=== PATIENT | female | born 1965 | race Caucasian/White ===

== ENCOUNTER 2019-07-25 23:16 | Inpatient (IN) | payer MEDICAID ==
[~2019-07-25] VITALS: Ht 175.3 cm; Wt 243.1 kg
--- NOTE | 2019-07-26 02:10 | NUR ---
Admitted direct admit from [facility] via ambulance. noted left black eye, states she did that to herself bumping her glasses. bruises on her upper chest and jhony arms right and left. large bag of medications , states some doctor ordered them and she is refusing to take them until she speaks in person to a MD. Medication will be taken to the Pharm in the [facility] of[facility] safe keeping. She stated she takes a BP medication but does not know its name/. She is obeses and bedbound
[2019-07-26 03:00] VITALS: BP 128/74
[2019-07-26] MEDS ORDERED: ONDANSETRON HCL/PF 4 MG/2 ML VIAL IVP PRN (03:00)
[2019-07-26] MEDS ORDERED: Z GUARD REMEDY 2 OZ OINT TP PRN (03:00)
[2019-07-26] MEDS ORDERED: MAG HYDROX/AL HYDROX/SIMETH 30 ML UDC PO PRN ×2 (03:00→17:00)
[2019-07-26] MEDS ORDERED: HYDROCODONE/APAP 5/325MG 1 EACH TABLET PO PRN (03:00)
[2019-07-26] MEDS ORDERED: MAGNESIUM HYDROXIDE 30 ML UDC PO PRN (03:00)
[2019-07-26] MEDS ORDERED: ZOLPIDEM TARTRATE 5 MG TABLET PO PRN (03:00)
[2019-07-26 03:13] LABS: EOSINOPHILS % (AUTO) 0.6 % (0.0-6.0); HEMATOCRIT 33 % (33-45); HEMOGLOBIN 10.6 g/dL (11.5-14.8); LYMPHOCYTES # (AUTO) 0.2 /CMM (0.8-4.8); LYMPHOCYTES % (AUTO) 11.7 % (20.0-44.0); MEAN CORPUSCULAR HGB CONC 32 g/dl (31.0-36.0); MEAN CORPUSCULAR VOLUME 87 fL (82-100); MONOCYTES # (AUTO) 0.1 /CMM (0.1-1.30); MONOCYTES % (AUTO) 9.2 % (2.0-12.0); NEUTROPHILS # (AUTO) 1.1 /CMM (1.8-8.9); NEUTROPHILS % (AUTO) 75.5 % (43.0-81.0); RED BLOOD CELL COUNT(AUTO) 3.78 MIL/uL (4.0-5.2)
[2019-07-26 03:22] LABS: CALCIUM, SERUM 8.8 mg/dL (8.5-10.1); CREATININE 0.6 mg/dL (0.6-1.3); POTASSIUM 3.4 mmol/L (3.5-5.1)
[2019-07-26 03:24] VITALS: BP 128/74
[2019-07-26 04:22] LABS: WHITE BLOOD COUNT (AUTO) 1.5 K/uL (4.3-11.0)
[2019-07-26 04:23] LABS: PLATELET COUNT (AUTO) 6 /CMM (150-450)
[2019-07-26] MEDS: MORPHINE SULFATE INJ 2 MG/ML DISP.SYRIN IV PRN ×4 (05:19→21:55)
[2019-07-26 05:57] LABS: LYMPHOCYTES % (MANUAL) 13 % (16-48); MONOCYTES % (MANUAL) 10 % (0-11.0); NEUTROPHILS % (MANUAL) 77 (42-76)
--- NOTE | 2019-07-26 07:30 | NUR ---
RN MS NOTES PT IN BED, AWAKE, ALERT AND ORIENTED, STILL WITH COMPLAINT OF ABDOMINAL PAIN, RESPIRATIONS NORMAL AND NOT LABORED, CALL LIGHT WITHIN REACH, NEEDS ATTENDED.
--- NOTE | 2019-07-26 07:58 | NUR ---
LINKING MACHINE OPERATOR/MED RECON PATIENT OAX3, ABLE TO MAKE NEEDS KNOW. REPORTED NOT TAKING ANY MEDICATION. ADMITTED FROM [facility] WITH HOME MEDICATION SUPPLY, PER PATIENT "I DON'T TAKE ANY MEDICATION, I WAS PRESCRIBED WITH THEM BUT I DON'T KNOW WHY? I NEVER SAW THE DOCTOR THAT PRESCRIBED THEM". PRIMARY RN AWARE.
[2019-07-26 08:00] VITALS: BP 134/71
--- NOTE | 2019-07-26 09:01 | NUR ---
RN MS NOTES PT STATED THAT SHE IS ALLERGIC TO CODEINE BUT SAID SHE IS OKAY TAKING MORPHINE, NO ADVERSE REACTION NOTED.
[2019-07-26] MEDS: PANTOPRAZOLE 40 MG TABLET.DR PO SCH (09:18)
[2019-07-26] MEDS ORDERED: POTASSIUM CHLORIDE 20 MEQ TAB.PRT.SR PO SCH (10:00)
--- NOTE | 2019-07-26 13:45 | NUR ---
RN MS NOTES PT IN BED, AWAKE, ALERT AND ORIENTED, NOT IN DISTRESS, PAIN MEDS GIVEN FOR ABDOMINAL PAIN, SEEN AND EXAMINED BY DR. KAUR, PLAN OF CARE DISCUSSED WITH PT, VERBALIZED UNDERSTANDING.
[2019-07-26] MEDS ORDERED: BACL10TA PO (14:56)
[2019-07-26] MEDS ORDERED: PROP40TA7 PO (14:56)
[2019-07-26] MEDS ORDERED: FENT1PAT2 TD (14:56)
[2019-07-26] MEDS ORDERED: HYDR28.32 TP (14:56)
[2019-07-26] MEDS ORDERED: MINE105O TP (14:56)
[2019-07-26] MEDS ORDERED: MELA5TAB PO (14:56)
[2019-07-26] MEDS ORDERED: MAG355OR32 PO (14:56)
[2019-07-26] MEDS ORDERED: TOPI100T38 PO (14:56)
[2019-07-26] MEDS ORDERED: LOPE2CAP40 PO (14:56)
[2019-07-26] MEDS ORDERED: FEXO180T94 PO (14:56)
[2019-07-26] MEDS ORDERED: SIME80TA15 PO (14:56)
[2019-07-26] MEDS ORDERED: HYDR-500 PO (14:56)
[2019-07-26] MEDS ORDERED: BENA20TA9 PO (14:56)
[2019-07-26] MEDS ORDERED: ALBU2.5V38 IH (14:56)
[2019-07-26] MEDS ORDERED: CHOL500052 PO (14:56)
[2019-07-26] MEDS ORDERED: LOPERAMIDE HCL (2 MG CAP) 2 MG CAPSULE PO PRN (17:00)
[2019-07-26] MEDS ORDERED: HYDROCORTISONE 1% CREAM 28.35 GM TUBE TP PRN (17:00)
[2019-07-26] MEDS ORDERED: ALBUTEROL FS 2.5 MG/3 ML VIAL.NEB IH PRN (17:00)
[2019-07-26] MEDS ORDERED: SIMETHICONE 80 MG TAB.CHEW PO PRN (17:00)
[2019-07-26] MEDS ORDERED: Medication Not On Formulary EA (Melatonin 5 MG) PO PRN (17:30)
[2019-07-26] MEDS ORDERED: hydrOXYzine 10 MG TABLET PO PRN (17:30)
[2019-07-26] MEDS: TOPIRAMATE 100 MG TABLET PO SCH (18:00)
[2019-07-26] MEDS: FENTANYL TD PATCH (12 MCG/HR) 12 MCG/HR PATCH.TD72 TD SCH (18:00)
--- NOTE | 2019-07-26 19:00 | NUR ---
RN MS NOTES PT IN BED, AWAKE, ALERT AND ORIENTED, NO COMPLAINT AT THIS TIME, RESPIRATIONS NORMAL, PT HARD STICK, DR. KAUR ORDERED MIDLINE, AWAITING PLACEMENT, ATE DINNER, TOLERATES WELL, PT FOR PLATELET TRANSFUSION, ALL NEEDS ATTENDED.
[2019-07-26 19:32] VITALS: BP 128/90
--- NOTE | 2019-07-26 19:56 | NUR ---
MS/RN OPENING NOTES RECEIVED PATIENT IN BED, AWAKE, ALERT X3 ABLE TO VERBALIZE NEEDS. DISCUSSED CARE. INFORMED REGARDING MIDLINE PROCEDURE AND TO ADMINISTER PLATELET ONCE CROSS MATCH WILL BE PROVIDED. BED LOCKED, CALL LIGHTS WITHIN REACH, BED TABLE WITHIN REACH. ON ROOM AIRE RESPIRATIONS EVEN AND UNLABORED, WILL MONITOR. RECEIVED ENDORSEMENT FROM AM RN FOR JEFFREY.
[2019-07-26 20:00] VITALS: BP 129/80
--- NOTE | 2019-07-26 20:50 | NUR ---
AWAITING FOR PICC LINE NURSE AND PATIENT WOULD LIKE TO HAVE ANOTHER BED THAT IS MORE COMFORTABLE, THAT WAS REFUSED YESTERDAY, A BARIATRIC BED TO FOLLOW UP IN AM.
--- NOTE | 2019-07-26 21:00 | NUR ---
PER DR. RAYMOND TO COLLECT URINE AND MAY USE STRAIGHT CATHETER .
[2019-07-26] MEDS: PROPRANOLOL HCL 40 MG TABLET PO SCH (21:54)
[2019-07-26] MEDS: FOLIC ACID 1 MG TABLET PO SCH (21:54)
--- NOTE | 2019-07-26 22:00 | NUR ---
PATIENT HAD COVID TEST AT [facility] WITH NEGATIVE RESULT RECENTLY. PATIENT REFUSED TO HAVE ANOTHER TEST AT THIS TIME,
[2019-07-26 22:37] LABS: ALBUMIN 3.3 g/dL (3.4-5.0); BILIRUBIN,DIRECT 0.3 mg/dL (0.0-0.2); BILIRUBIN,TOTAL 0.9 mg/dL (0.2-1.0); TOTAL PROTEIN, SERUM 5.7 g/dL (6.4-8.2)
[2019-07-27] VITALS (10 sets, daily range): BP systolic 105–149; BP diastolic 63–89
[2019-07-27 00:41] LABS: D-DIMER 4.32 mg/L(FEU (0.17-0.50)
--- NOTE | 2019-07-27 02:05 | NUR ---
LATEST RESULT OF PLATELET COUNT AT 7., PER LAB BRENDAN ANTIBODY POSITIVE FROM [place] .
[2019-07-27] MEDS: MORPHINE SULFATE INJ 2 MG/ML DISP.SYRIN IV PRN ×4 (04:11→22:23)
[2019-07-27] MEDS: PROPRANOLOL HCL 40 MG TABLET PO SCH ×3 (05:00→20:50)
--- NOTE | 2019-07-27 07:00 | NUR ---
307-2 MS/RN NOTES PATIENT ABLE TO SLEEP FEW HOURS, ALERT, ORIENTED AND ABLE TO MAKE NEEDS KNOWN. ATTENDED TO ALL NEEDS, BLOOD DRAWN AND PLATELET ORDER RECEIVED FOR TRANSFUSION , MIDLINE PLACED AND KEPT INTACT. BED LOCKED, BREATHING EVEN AND UNLABORED, WILL ENDORSE TO AM RN FOR JEFFREY.
--- NOTE | 2019-07-27 07:07 | NUR ---
started to infuse one unit of platelet. check patient vital signs and cosigned by another RN Barbara.will endorse to am rn for uche.
--- NOTE | 2019-07-27 07:30 | NUR ---
RN MS NOTES PT IN BED, ASLEEP, EASY TO AROUSE, ALERT AND ORIENTED, NO COMPLAINT AT THIS TIME, RESPIRATIONS NORMAL, CALL LIGHT WITHIN REACH, TRANSFUSING PLATELETS, TOLERATING WELL, NEEDS ATTENDED.
[2019-07-27] MEDS ORDERED: ERGOCALCIFEROL (VITAMIN D 2) 50,000 UNIT CAPSULE PO SCH (09:00)
[2019-07-27] MEDS: FEXOFENADINE HCL (60 MG) 60 MG TABLET PO SCH (09:00)
[2019-07-27] MEDS: FOLIC ACID 1 MG TABLET PO SCH (09:00)
[2019-07-27] MEDS: BENAZEPRIL HCL 20 MG TABLET PO SCH (09:00)
[2019-07-27] MEDS: PANTOPRAZOLE 40 MG TABLET.DR PO SCH (09:51)
[2019-07-27 10:51] LABS: BASOPHILS % (AUTO) 0.3 % (0.0-2.0); EOSINOPHILS % (AUTO) 0.5 % (0.0-6.0); HEMATOCRIT 31 % (33-45); HEMOGLOBIN 10.1 g/dL (11.5-14.8); LYMPHOCYTES # (AUTO) 0.2 /CMM (0.8-4.8); LYMPHOCYTES % (AUTO) 14.6 % (20.0-44.0); MEAN CORPUSCULAR HGB CONC 32 g/dl (31.0-36.0); MEAN CORPUSCULAR VOLUME 86 fL (82-100); MONOCYTES # (AUTO) 0.1 /CMM (0.1-1.30); MONOCYTES % (AUTO) 7.7 % (2.0-12.0); NEUTROPHILS # (AUTO) 0.9 /CMM (1.8-8.9); NEUTROPHILS % (AUTO) 76.9 % (43.0-81.0); RED BLOOD CELL COUNT(AUTO) 3.62 MIL/uL (4.0-5.2)
[2019-07-27 11:10] LABS: CALCIUM, SERUM 8.7 mg/dL (8.5-10.1); CREATININE 0.6 mg/dL (0.6-1.3); PHOSPHORUS 3.6 mg/dL (2.5-4.9); POTASSIUM 3.6 mmol/L (3.5-5.1)
[2019-07-27 11:16] LABS: PLATELET COUNT (AUTO) 7 /CMM (150-450); WHITE BLOOD COUNT (AUTO) 1.2 K/uL (4.3-11.0)
[2019-07-27 12:30] LABS: THYROID STIMULATING HORMONE 1.199 uIU/mL (0.358-3.74)
--- NOTE | 2019-07-27 13:00 | NUR ---
RN MS NOTES PT IN BED, AWAKE, ALERT AND ORIENTED, PAIN MEDS GIVEN FOR PAIN MANAGEMENT, COMPLETED 2 UNITS OF PLATELETS, VITAL SIGNS WNL, TOLERATED WELL, CALL LIGHT WITHIN REACH.
[2019-07-27 14:25] LABS: LYMPHOCYTES % (MANUAL) 12 % (16-48); MONOCYTES % (MANUAL) 8 % (0-11.0); NEUTROPHILS % (MANUAL) 80 (42-76)
[2019-07-27] MEDS ORDERED: ACETAMINOPHEN 325 MG TABLET PO ONE (14:30)
[2019-07-27] MEDS ORDERED: diphenhydrAMINE HCL 50 MG/ML VIAL IV ONE (14:30)
[2019-07-27] MEDS ORDERED: CEFEPIME 1 GM VIAL IM SCH (15:00)
[2019-07-27] MEDS: AZTREONAM 2 G in IV NS 0.9% 100 ML IV SCH (17:43)
[2019-07-27] MEDS: TOPIRAMATE 100 MG TABLET PO SCH (17:47)
[2019-07-27] MEDS: ALLOPURINOL 100 MG TABLET PO SCH (17:47)
--- NOTE | 2019-07-27 19:00 | NUR ---
RN MS NOTES PT AWAKE, ALERT AND ORIENTED, PAIN MEDICATION GIVEN FOR PAIN MANAGEMENT, NOT IN DISTRESS, STARTED PT ON IV ATB PER ORDER OF DR. RAYMOND, PM CARE RENDERED, MOVED PT TO [facility] BED, TOLERATED WELL, REPOSITIONED FOR COMFORT, PT REFUSED URINE SPECIMEN COLLECTION UNTIL AFTER SHE WAS TRANSFERRED TO THE [facility] BED, ENDORSED CARE TO HORTICULTURAL FARMWORKER NURSE FOR CONTINUITY OF CARE.
--- NOTE | 2019-07-27 20:00 | NUR ---
MS/RN OPENING NOTES RECEIVED PATIENT IN BED, ALERT, ORIENTED X3, ABLE TO VERBALIZE NEEDS, ON BARIATRIC BED, RESPIRATIONS EVEN AND UNLABORED, ON CONTACT ISOLATION FOR MRSA NARES,NEUTRAPENIA PRECAUTION WITH LOW WBC. KEPT COMFORTABLE, PROVIDED SOME SNACKS, DISCUSSED PLAN OF CARE, WILL MONITOR. BED LOCKED, CALL LIGHTS WITHIN REACH. WILL ENDORSE TO AM RN FOR JEFFREY.
--- NOTE | 2019-07-27 20:47 | NUR ---
RESULT PER LAB REGAN GRAM POSITIVE COCCI IN CLUSTERS TO INFORM .
[2019-07-27] MEDS: MUPIROCIN OINT 2% 22 GM TUBE SCH (20:50)
--- NOTE | 2019-07-27 22:24 | NUR ---
PATIENT REQUESTED FOR PAIN MEDICATION FOR ABDOMINAL AND SHOULDER PAIN 10/12, MORPHINE 2 MG IVP REQUESTED BP WNL, ALERT, ORIENTED X3.
--- NOTE | 2019-07-27 23:11 | NUR ---
PREPARE PATIENT FOR PLATELET TRANSFUSION, ALERT, ORIENTED VITAL SIGNS RECORDED WNL. PATIENT PROVIDE INFORMATION ON PRE MEDICATION, AGREED FOR SOME TYLENOL ORDERED OF 650MG PO BUT REFUSED BENADRYL. DISCUSSED PROS AND CONS,VERBALIZED UNDERSTANDING. WILL MONITOR.
--- NOTE | 2019-07-27 23:42 | NUR ---
MS/RN NOTES PATIENT PLATELET BEING TRANSFUSED, AFTER BEING VERIFIED AND COSIGNED BY YESENIA DIOR,PATIENT ALERT, ORIENTED X3, ABLE TO VERBALIZE NEEDS, EDUCATED AND INSTRUCTED ON INFECTION CONTROL. WILL MONITOR.
[2019-07-28] VITALS (13 sets, daily range): BP systolic 123–143; BP diastolic 62–84
--- NOTE | 2019-07-28 | NUR ---
MS/RN NOTES PLATELET 1 UNIT TRANSFUSED WITH NO S/S OF REACTION. VITAL SIGNS CHECK WNL.TEMP AT 98.3. PULSE 82, O2 SAT IN ROOM AIR AT 95%, RES- PIRATION AT 19, B/P AT 124/64,
[2019-07-28] MEDS: AZTREONAM 2 G in IV NS 0.9% 100 ML IV SCH ×3 (00:20→16:46)
--- NOTE | 2019-07-28 03:11 | NUR ---
MS/RN NOTES PATIENT REFUSED TO HAVE ANOTHER PHOTO PICTURES TO BE TAKEN ON HER BRUISES, REPORTED THAT IT WAS PHOTOGRAPH ALREADY. MADE AWARE AND INSIST THAT SHE WANTED NO PICTURES BE TAKEN,
[2019-07-28] MEDS: MORPHINE SULFATE INJ 2 MG/ML DISP.SYRIN IV PRN ×4 (04:58→21:44)
[2019-07-28] MEDS: PROPRANOLOL HCL 40 MG TABLET PO SCH ×3 (05:00→21:45)
--- NOTE | 2019-07-28 05:03 | NUR ---
MS/RN NOTES PATIENT REQUESTED FOR PAIN MEDICATION IVP SLOW PICH OF 2MG DUE TO PAIN AND WITH BLOOD PRESSURE CHECK. REQUESTED NOT TO HAVE SCHEDULED MED AT 0500 FOR HTN BE GIVEN. AT THIS TIME AND WAIT FOR THE AM AT 9AM .
--- NOTE | 2019-07-28 06:18 | NUR ---
307-2 MS/RNNOTES PATIENT SLEPT FEW HOURS, WATCHED TV FOR DISTRACTION. ON PAIN MANAGEMENT MONITORING. IV ANTIBIOTIC INFUSED, PLATELET ONE UNIT TRANSFUSED WITH NO S/S OF ADVERSE REACTION, ON ROOM AIR WITH OXYGENATION LEVEL OF 95%. ATTENDED TO ALL NEEDS, WILL ENDORSE TO AM RN FOR JEFFREY.
[2019-07-28 06:42] LABS: D-DIMER 4.99 mg/L(FEU (0.17-0.50)
--- NOTE | 2019-07-28 06:45 | NUR ---
MS/RN NOTES RECEIVED LATEST PLATELET COUNT RESULT OF 9 REPORTED BY LAB RAMOS GONSALVES. TO FOLLOW UP INCOMING MD,AND ENDORSE TO AM RN FOR ANY NEW ORDER.
--- NOTE | 2019-07-28 06:53 | NUR ---
BLOOD BANK CONTACTED REGARDING PLASMA REQUEST AND TO BE PREPARED AND TO CALL ONCE READY. TO ENDORSE TO AM YESENIA .
[2019-07-28] MEDS: FOLIC ACID 1 MG TABLET PO SCH (08:16)
[2019-07-28] MEDS: ALLOPURINOL 100 MG TABLET PO SCH ×3 (08:16→16:32)
[2019-07-28] MEDS: FEXOFENADINE HCL (60 MG) 60 MG TABLET PO SCH (08:16)
[2019-07-28] MEDS: PANTOPRAZOLE 40 MG TABLET.DR PO SCH (08:16)
[2019-07-28] MEDS: BENAZEPRIL HCL 20 MG TABLET PO SCH (08:16)
[2019-07-28] MEDS: MUPIROCIN OINT 2% 22 GM TUBE SCH ×2 (08:29→21:00)
--- NOTE | 2019-07-28 10:17 | NUR ---
MS RN NOTES RECEIVED A CALL FROM LATOYA [place] [facility] [place] PER LATOYA SHE WILL ASK MD IF THEY WILL ACCEPT PATIENT AND WILL INFORM OUR CM.
[2019-07-28] MEDS ORDERED: ACETAMINOPHEN 325 MG TABLET PO ONE (13:00)
[2019-07-28] MEDS ORDERED: diphenhydrAMINE HCL 50 MG/ML VIAL IV ONE (13:00)
[2019-07-28 13:09] LABS: CALCIUM, SERUM 8.4 mg/dL (8.5-10.1); CREATININE 0.7 mg/dL (0.6-1.3); POTASSIUM 3.3 mmol/L (3.5-5.1); TOTAL PROTEIN, SERUM 5.4 g/dL (6.4-8.2)
[2019-07-28] MEDS ORDERED: FEE PK DOSING 1 MIN EA MC ONE (13:11)
[2019-07-28] MEDS: TBO-FILGRASTIM 480 MCG/0.8 ML ML SQ SCH (13:54)
[2019-07-28] MEDS: VANCOMYCIN 1.5 GM in IV D5W 500ml IV SCH (13:57)
[2019-07-28 14:43] LABS: BASOPHILS % (AUTO) 0.5 % (0.0-2.0); EOSINOPHILS % (AUTO) 0.9 % (0.0-6.0); HEMATOCRIT 29 % (33-45); HEMOGLOBIN 9.2 g/dL (11.5-14.8); LYMPHOCYTES # (AUTO) 0.1 /CMM (0.8-4.8); LYMPHOCYTES % (AUTO) 17.5 % (20.0-44.0); MEAN CORPUSCULAR HGB CONC 32 g/dl (31.0-36.0); MEAN CORPUSCULAR VOLUME 86 fL (82-100); MONOCYTES # (AUTO) 0.1 /CMM (0.1-1.30); MONOCYTES % (AUTO) 8.6 % (2.0-12.0); NEUTROPHILS # (AUTO) 0.5 /CMM (1.8-8.9); NEUTROPHILS % (AUTO) 72.5 % (43.0-81.0)
[2019-07-28 15:17] LABS: PLATELET COUNT (AUTO) 10 /CMM (150-450); WHITE BLOOD COUNT (AUTO) 0.7 K/uL (4.3-11.0)
--- NOTE | 2019-07-28 15:26 | NUR ---
MS RN NOTES RECEIVED WBC 0.7 AND PLT [address] KAUR WITH NNO.
[2019-07-28 15:36] LABS: BAND % (MANUAL) 2 % (0.0-5.0); LYMPHOCYTES % (MANUAL) 22 % (16-48); NEUTROPHILS % (MANUAL) 76 (42-76)
[2019-07-28 16:30] LABS: OCCULT BLOOD STOOL NEGATIVE (NEGATIVE)
--- NOTE | 2019-07-28 17:30 | NUR ---
MS RN NOTES CALLED AND SPOKE TO JAMES DUMONT AT LAB REGARDING PLT, INFORMED SARAY THAT DR. RAYMOND HAD ORDERED IT. PER SARAY, PLT PRODUCT IS NOT READY AND WILL BE RECEIVED FROM [facility].
[2019-07-28] MEDS: TOPIRAMATE 100 MG TABLET PO SCH (17:38)
--- NOTE | 2019-07-28 18:54 | NUR ---
MS RN NOTES 1ST BAG OF CRYOPRECIPITATE INFUSING (129ML) VICKY WELL
--- NOTE | 2019-07-28 19:01 | NUR ---
MS RN NOTES ALERT AND ORIENTED X4. RESTING COMFORTABLY WATCHING TV IN BED. NO SOB. HOB ELEVATED. DENIES ANY C/O PAIN NOR DISCOMFORT AT THIS TIME. GRANIX GIVEN ORDERED VICKY WELL. 1ST BAG OF FFP GIVEN VICKY WELL (319ML), 1ST BAG OF CRYOPRECIPITATE (129 ML) INFUSING AT THIS TIME VICKY WELL ON OSCAR MIDLINE INTACT AND PATENT. BED IN LOWEST POSITION , LOCKED. BED ALARM ON. CALL LIGHT WITHIN REACH. ABLE TO VERBALIZE NEEDS.
--- NOTE | 2019-07-28 19:45 | NUR ---
MS RN NOTES 1ST BAG OF CRYOPRECIPITATE GIVEN (129 ML) INFUSED VICKY WELL.
--- NOTE | 2019-07-28 21:32 | NUR ---
call made to blood bank requested thawing of plasma. spoke with stacey process will be started
[2019-07-28] MEDS: BACLOFEN (10 MG) 10 MG TABLET PO PRN (21:45)
[2019-07-29] VITALS (11 sets, daily range): BP systolic 130–152; BP diastolic 67–86
--- NOTE | 2019-07-29 00:15 | NUR ---
cryoprecipatate would not allowed to be documented on patient record. call made to blood bank [facility] will call back. 0025 visitied blood bank issue of cryoprecipatate reviewed with christianne barone blood mold repair technician. revewed expeiration time. 0140 cryoprecipate started to infuse with new tubing. before timed expiration. barcode overridden per christianne barone blood mold repair technician bar code for cryoprecipatate not available.
--- NOTE | 2019-07-29 00:15 | NUR ---
BLOOD COMPONENT ADMINISTRATION. attempted to hang cryoprecipatate at 0015 and computer would not allow documentation. 0020 called blood BANK AND BLOOD BANK TECH UNAVAILABLE. 0030 RETURNED TO BLOOD BANK FOUND BLOOD BANK TECH AND CLARIFIED CRYOPRECIPITATE, APPARENTLY JAY NOT CLOSED PROPERLY WHICH DID NOT RELEASE CRYO IN SYSTEM. REVIEWED EXPERATION OF CRYO TIME AND ABILITY TO STORE AT ROOM TEMP WILL TRANSFUSE AFTER ANTIBIOTIC INFUSED. Addendum: 07/29/19 at 5845 by MADELYN FERGUSON RN NOTE ALREADY WRITTEN. WRITTEN IN ERROR.
[2019-07-29] MEDS: AZTREONAM 2 G in IV NS 0.9% 100 ML IV SCH ×4 (00:19→23:33)
[2019-07-29] MEDS: VANCOMYCIN 1.5 GM in IV D5W 500ml IV SCH ×2 (02:51→14:16)
[2019-07-29] MEDS: MORPHINE SULFATE INJ 2 MG/ML DISP.SYRIN IV PRN ×5 (03:00→22:20)
[2019-07-29] MEDS: PROPRANOLOL HCL 40 MG TABLET PO SCH ×3 (05:28→20:10)
--- NOTE | 2019-07-29 05:32 | NUR ---
PATIENT REFUSES BEDDING CHANGE.
--- NOTE | 2019-07-29 05:47 | NUR ---
labs rescheduled to be performed after blood product infusions.
[2019-07-29] MEDS: ACETAMINOPHEN 325 MG TABLET PO PRN (06:08)
--- NOTE | 2019-07-29 07:30 | NUR ---
ms rn received on bed, awake,alert,oriented x4,not in any form of distress, respirations even and unlabored,no sob noted, plasma bag just finished from shift commander, called blood bank for clarification of plasma to be given 1 bag more, but was told that it was completed already andday shift rn gave the first one, cn notified and made aware.
--- NOTE | 2019-07-29 08:00 | NUR ---
ms alonzo breakfast served,due meds given,tolerated well.will monitor patient.
[2019-07-29] MEDS: FOLIC ACID 1 MG TABLET PO SCH (09:06)
[2019-07-29] MEDS: FEXOFENADINE HCL (60 MG) 60 MG TABLET PO SCH (09:07)
[2019-07-29] MEDS: ALLOPURINOL 100 MG TABLET PO SCH ×3 (09:17→17:15)
[2019-07-29] MEDS: BENAZEPRIL HCL 20 MG TABLET PO SCH (09:18)
[2019-07-29] MEDS: PANTOPRAZOLE 40 MG TABLET.DR PO SCH (09:19)
[2019-07-29] MEDS: MUPIROCIN OINT 2% 22 GM TUBE SCH ×2 (09:31→20:07)
[2019-07-29 09:34] LABS: BASOPHILS % (AUTO) 0.2 % (0.0-2.0); EOSINOPHILS % (AUTO) 0.9 % (0.0-6.0); HEMATOCRIT 28 % (33-45); LYMPHOCYTES # (AUTO) 0.2 /CMM (0.8-4.8); LYMPHOCYTES % (AUTO) 8.4 % (20.0-44.0); MEAN CORPUSCULAR HGB CONC 32 g/dl (31.0-36.0); MEAN CORPUSCULAR VOLUME 87 fL (82-100); MONOCYTES # (AUTO) 0.2 /CMM (0.1-1.30); MONOCYTES % (AUTO) 7.6 % (2.0-12.0); NEUTROPHILS # (AUTO) 1.9 /CMM (1.8-8.9); NEUTROPHILS % (AUTO) 82.9 % (43.0-81.0); RED BLOOD CELL COUNT(AUTO) 3.24 MIL/uL (4.0-5.2); WHITE BLOOD COUNT (AUTO) 2.3 K/uL (4.3-11.0)
[2019-07-29 09:37] LABS: PLATELET COUNT (AUTO) 12 /CMM (150-450)
[2019-07-29 09:40] LABS: ALBUMIN 2.9 g/dL (3.4-5.0); CALCIUM, SERUM 7.8 mg/dL (8.5-10.1); CREATININE 0.7 mg/dL (0.6-1.3); POTASSIUM 3.2 mmol/L (3.5-5.1); TOTAL PROTEIN, SERUM 5.3 g/dL (6.4-8.2)
--- NOTE | 2019-07-29 10:00 | NUR ---
ms rn offer staright catheter to collect urine, patient refused. was told to have bed vinson when she urinate.
[2019-07-29 10:10] LABS: BAND % (MANUAL) 4 % (0.0-5.0); EOSINOPHILS % (MANUAL) 1 % (0-4); LYMPHOCYTES % (MANUAL) 8 % (16-48); MONOCYTES % (MANUAL) 4 % (0-11.0); NEUTROPHILS % (MANUAL) 83 (42-76)
--- NOTE | 2019-07-29 11:00 | NUR ---
ms cheri valerio saw patient w/ orders made and carried out.
--- NOTE | 2019-07-29 11:00 | NUR ---
ms rn platelet level received form lab,12 atthis time, dr. wilson was notified.
[2019-07-29] MEDS ORDERED: POTASSIUM CHLORIDE 20 MEQ TAB.PRT.SR PO ONE (11:30)
--- NOTE | 2019-07-29 13:00 | NUR ---
ms rn offered straight cath again but refused.
--- NOTE | 2019-07-29 13:00 | NUR ---
ms rn platelet level received - 12, dr. wilson notified w/ o further order.
[2019-07-29] MEDS: TBO-FILGRASTIM 480 MCG/0.8 ML ML SQ SCH (14:53)
[2019-07-29 15:21] LABS: D-DIMER 3.75 mg/L(FEU (0.17-0.50)
[2019-07-29] MEDS: TOPIRAMATE 100 MG TABLET PO SCH (17:15)
[2019-07-29] MEDS: FENTANYL TD PATCH (12 MCG/HR) 12 MCG/HR PATCH.TD72 TD SCH ×2 (17:15→17:18)
--- NOTE | 2019-07-29 18:00 | NUR ---
ms rn patient was cleaned, urinated already, was not able to collect urine, will staright cath but definitely refused it.
[2019-07-29] MEDS: BACLOFEN (10 MG) 10 MG TABLET PO PRN (20:08)
[2019-07-29] MEDS: VANCOMYCIN 1.25 GM in IV D5W 250 ML IV SCH (22:11)
[2019-07-30] VITALS (7 sets, daily range): BP systolic 124–140; BP diastolic 68–88
[2019-07-30] MEDS: ACETAMINOPHEN 325 MG TABLET PO PRN (00:23)
--- NOTE | 2019-07-30 00:23 | NUR ---
tyelenol administered prn at patients request for aching pain in hands rated 3/10
[2019-07-30] MEDS: MORPHINE SULFATE INJ 2 MG/ML DISP.SYRIN IV PRN ×3 (04:28→20:37)
[2019-07-30] MEDS: PROPRANOLOL HCL 40 MG TABLET PO SCH ×3 (04:41→22:02)
--- NOTE | 2019-07-30 04:41 | NUR ---
PATIENT WASHED; REFUSED STRAIGHT CATH FOR URINE COLLECTION. attempted to straight cath patient patient refused. states "I don't want to do that now.! No way!"
[2019-07-30] MEDS: VANCOMYCIN 1.25 GM in IV D5W 250 ML IV SCH ×3 (05:21→22:02)
[2019-07-30 06:12] LABS: BASOPHILS % (AUTO) 0.1 % (0.0-2.0); EOSINOPHILS % (AUTO) 0.9 % (0.0-6.0); HEMATOCRIT 30 % (33-45); HEMOGLOBIN 9.8 g/dL (11.5-14.8); LYMPHOCYTES # (AUTO) 0.2 /CMM (0.8-4.8); LYMPHOCYTES % (AUTO) 6.7 % (20.0-44.0); MEAN CORPUSCULAR HGB CONC 32 g/dl (31.0-36.0); MEAN CORPUSCULAR VOLUME 88 fL (82-100); MONOCYTES # (AUTO) 0.2 /CMM (0.1-1.30); MONOCYTES % (AUTO) 8.3 % (2.0-12.0); NEUTROPHILS # (AUTO) 2.3 /CMM (1.8-8.9); RED BLOOD CELL COUNT(AUTO) 3.45 MIL/uL (4.0-5.2); WHITE BLOOD COUNT (AUTO) 2.8 K/uL (4.3-11.0)
[2019-07-30 06:27] LABS: PLATELET COUNT (AUTO) 12 /CMM (150-450)
[2019-07-30 06:42] LABS: ALBUMIN 3.1 g/dL (3.4-5.0); BILIRUBIN,TOTAL 1.3 mg/dL (0.2-1.0); CALCIUM, SERUM 8.5 mg/dL (8.5-10.1); CREATININE 0.6 mg/dL (0.6-1.3); MAGNESIUM 1.5 mg/dL (1.8-2.4); PHOSPHORUS 2.6 mg/dL (2.5-4.9); POTASSIUM 3.4 mmol/L (3.5-5.1); TOTAL PROTEIN, SERUM 5.7 g/dL (6.4-8.2)
[2019-07-30 07:28] LABS: D-DIMER 3.57 mg/L(FEU (0.17-0.50)
[2019-07-30 07:32] LABS: BAND % (MANUAL) 5 % (0.0-5.0); EOSINOPHILS % (MANUAL) 1 % (0-4); LYMPHOCYTES % (MANUAL) 10 % (16-48); MONOCYTES % (MANUAL) 8 % (0-11.0); NEUTROPHILS % (MANUAL) 76 (42-76)
--- NOTE | 2019-07-30 08:00 | NUR ---
MS RN NOTES ALERT AND ORIENTED X4. RESTING COMFORTABLY WATCHING TV IN BED. NO SOB. HOB ELEVATED. DENIES ANY C/O PAIN NOR DISCOMFORT AT THIS TIME. WITH OSCAR MIDLINE INTACT AND PATENT. BED IN LOWEST POSITION , LOCKED. BED ALARM ON. CALL LIGHT WITHIN REACH. ABLE TO VERBALIZE NEEDS.PT REFUSED BACTROBAN OINTMENT AND REFUSED TO HAVE URINE COLLECTED THROUGH STRAIGHT CATH INSPITE OF EXPLAINING THE RISKS AND BENEFITS.PT INSISTS TO REFUSE.
[2019-07-30] MEDS: BENAZEPRIL HCL 20 MG TABLET PO SCH (08:57)
[2019-07-30] MEDS: FOLIC ACID 1 MG TABLET PO SCH (08:57)
[2019-07-30] MEDS: FEXOFENADINE HCL (60 MG) 60 MG TABLET PO SCH (08:57)
[2019-07-30] MEDS: ALLOPURINOL 100 MG TABLET PO SCH ×4 (08:57→18:27)
[2019-07-30] MEDS: PANTOPRAZOLE 40 MG TABLET.DR PO SCH (08:57)
[2019-07-30] MEDS: MUPIROCIN OINT 2% 22 GM TUBE SCH ×2 (09:00→22:03)
[2019-07-30] MEDS: AZTREONAM 2 G in IV NS 0.9% 100 ML IV SCH ×2 (09:05→18:43)
[2019-07-30] MEDS ORDERED: POTASSIUM CHLORIDE 20 MEQ TAB.PRT.SR PO ONE (09:30)
--- NOTE | 2019-07-30 09:39 | NUR ---
pt refused Bactroban ointment and has ongoing Azactam IV atb infusion ongoing delaying Magnesium IV infusion.
--- NOTE | 2019-07-30 09:41 | NUR ---
Pt refused Potassium pill and urine to collect for UA inspite of explaining the risks and benefits.
[2019-07-30] MEDS: Magnesium 1GM/D5W 100ML PREMIX 100 ML IV SCH ×3 (11:01→13:22)
--- NOTE | 2019-07-30 12:13 | NUR ---
FIBRINOGEN LEVEL 100-DR RAYMOND MADE AWARE WITH STANDING ORDER OF TRANSFUSING 10 UNITS CRYOPRECIPITATE IF FIBRINOGEN LEVEL IS BELOW 150.
[2019-07-30] MEDS: TBO-FILGRASTIM 480 MCG/0.8 ML ML SQ SCH (15:03)
--- NOTE | 2019-07-30 17:08 | NUR ---
SCANNED THE BAR CODE OF FIRST UNIT CRYOPRECIPITATE AND IT SAYS "SCANNED PRODUCT DOES NOT MATCH SELECTED UNIT" NOTIFIED BLOOD BANK AND SPOKE TO JOHNNIE OF BLOOD BANK AND [facility] STATED THAT ITS OK TO ADMINISTER AND THEY ARE AWARE THAT THE BAR CODE WON'T SCAN BEC ITS A CRYOPRECIPITATE-WITNESSED BY CO-RNQUE AND ADMINISTERED.
--- NOTE | 2019-07-30 17:09 | NUR ---
Started transfusing first bag of cryoprecipitate 5 units infusing well with stable v/s.will continue to monitor.
--- NOTE | 2019-07-30 17:20 | NUR ---
COMPLETED 1ST UNIT CRYOPRECIPITATE (5 UNITS) WITH NO ADVERSE REACTIONS. PT DENIES ANY PAIN OR DISTRESS.WITH STABLE V/S. WILL CONTINUE TO MONITOR.
--- NOTE | 2019-07-30 17:36 | NUR ---
STARTED TRANSFUSING 2ND UNIT CRYOPRECIPITATE (5 UNITS) WILL MONITOR FOR ADVERSE REACTIONS. PT DENIES ANY PAIN OR DISTRESS.WITH STABLE V/S. WILL CONTINUE TO MONITOR.
[2019-07-30] MEDS: TOPIRAMATE 100 MG TABLET PO SCH ×2 (18:00→18:27)
--- NOTE | 2019-07-30 18:00 | NUR ---
COMPLETED TRANSFUSING 2ND BAG OF CRYOPRECIPITATE (5 UNITS) WITH STABLE V/S AND NO ADVERSE REACTIONS NOTED. PT DENIES ANY PAIN OR DISTRESS.WILL CONTINUE TO MONITOR.CALL LIGHT PLACED WITHIN REACH.
--- NOTE | 2019-07-30 18:30 | NUR ---
PT REFUSED HER PM MEDS INSPITE OF EXPLAINING ITS RISKS AND BENEFITS.REFUSED URINE STRAIGHT CATH WELL.
--- NOTE | 2019-07-30 19:00 | NUR ---
PT REFUSED TO BE TURNED AND REPOSITIONED FOR SKIN CARE MANAGEMENT INSPITE OF EXPLAINING ITS RISKS AND BENEFITS.PT IS UPSET AND KEEPS SCREAMING SAYING THAT SHE IS ALWAYS HOOKED ON IV FLUIDS AND IV ATBS AND EXPLAINED THE REASON EACH TIME AN IV ATB,PROCEDURE OR CRYOPREPCIPITATE BUT PT SCREAMS SAYING THAT SHE IS TIRED OF IT ALL.
[2019-07-30] MEDS: BACLOFEN (10 MG) 10 MG TABLET PO PRN (20:37)
[2019-07-31] MEDS: AZTREONAM 2 G in IV NS 0.9% 100 ML IV SCH ×3 (00:13→16:58)
[2019-07-31] MEDS: MORPHINE SULFATE INJ 2 MG/ML DISP.SYRIN IV PRN ×5 (01:07→22:03)
[2019-07-31] MEDS: BACLOFEN (10 MG) 10 MG TABLET PO PRN ×3 (05:10→22:03)
[2019-07-31] MEDS: VANCOMYCIN 1.25 GM in IV D5W 250 ML IV SCH ×4 (05:11→22:03)
[2019-07-31] MEDS: PROPRANOLOL HCL 40 MG TABLET PO SCH ×3 (05:11→20:54)
--- NOTE | 2019-07-31 06:14 | NUR ---
MS RN NOTES AWAKE & RESPONSIVE. NOT IN ANY DISTRESS. NO SOB NOTED. DENIES ANY PAIN OR DISCOMFORT AT THIS TIME. WITH IV-ML PATENT & INTACT. AM CAR DONE. MONITORED ACCORDINGLY. CALL LIGHT WITHIN REACH. BED IN LOWEST POSITION. SR UP X 3 WITH BED ALARM ON FOR SAFETY. WILL ENDORSE TO NEXT SHIFT.
[2019-07-31 08:00] VITALS: BP 138/76
--- NOTE | 2019-07-31 08:00 | NUR ---
MS RN OPENING NOTES Received Patient awake and resting in bed. A/O x 4. VS stable with no acute distress. Breathing even and unlabored on room air with no respiratory distress. Patient stated moderate generalized pain. Will intervene as ordered. OSCAR Midline clean, intact, patent and flushing well. Safety precautions in place. Bed locked and set to lowest position with side rails x 2 up. All needs rendered at this time. Call light within reach. Will continue to monitor.
[2019-07-31] MEDS: PANTOPRAZOLE 40 MG TABLET.DR PO SCH (08:21)
[2019-07-31] MEDS: FOLIC ACID 1 MG TABLET PO SCH (08:22)
[2019-07-31] MEDS: BENAZEPRIL HCL 20 MG TABLET PO SCH (08:22)
[2019-07-31] MEDS: MUPIROCIN OINT 2% 22 GM TUBE SCH ×2 (08:22→20:54)
[2019-07-31] MEDS: ALLOPURINOL 100 MG TABLET PO SCH ×3 (08:35→17:00)
[2019-07-31] MEDS: FEXOFENADINE HCL (60 MG) 60 MG TABLET PO SCH (08:35)
[2019-07-31 11:18] LABS: BASOPHILS % (AUTO) 0.3 % (0.0-2.0); EOSINOPHILS % (AUTO) 1.3 % (0.0-6.0); HEMATOCRIT 31 % (33-45); HEMOGLOBIN 9.9 g/dL (11.5-14.8); LYMPHOCYTES # (AUTO) 0.2 /CMM (0.8-4.8); LYMPHOCYTES % (AUTO) 7.6 % (20.0-44.0); MEAN CORPUSCULAR HGB CONC 32 g/dl (31.0-36.0); MEAN CORPUSCULAR VOLUME 86 fL (82-100); MONOCYTES # (AUTO) 0.2 /CMM (0.1-1.30); MONOCYTES % (AUTO) 8.4 % (2.0-12.0); NEUTROPHILS # (AUTO) 2.1 /CMM (1.8-8.9); NEUTROPHILS % (AUTO) 82.4 % (43.0-81.0); WHITE BLOOD COUNT (AUTO) 2.5 K/uL (4.3-11.0)
[2019-07-31 11:20] LABS: PLATELET COUNT (AUTO) 18 /CMM (150-450)
[2019-07-31 11:23] LABS: D-DIMER 2.92 mg/L(FEU (0.17-0.50)
[2019-07-31 11:30] LABS: ALBUMIN 3.1 g/dL (3.4-5.0); BILIRUBIN,TOTAL 0.8 mg/dL (0.2-1.0); CALCIUM, SERUM 8.4 mg/dL (8.5-10.1); CREATININE 0.6 mg/dL (0.6-1.3); MAGNESIUM 1.9 mg/dL (1.8-2.4); PHOSPHORUS 2.7 mg/dL (2.5-4.9); POTASSIUM 3.2 mmol/L (3.5-5.1); TOTAL PROTEIN, SERUM 5.7 g/dL (6.4-8.2)
[2019-07-31] MEDS: TBO-FILGRASTIM 480 MCG/0.8 ML ML SQ SCH (12:46)
[2019-07-31 13:43] LABS: BAND % (MANUAL) 1 % (0.0-5.0); LYMPHOCYTES % (MANUAL) 10 % (16-48); NEUTROPHILS % (MANUAL) 87 (42-76)
[2019-07-31 13:44] LABS: MONOCYTES % (MANUAL) 2 % (0-11.0)
[2019-07-31 16:00] VITALS: BP 137/77
--- NOTE | 2019-07-31 16:03 | NUR ---
MS RN NOTES Patient refusing COVID-19 Test at this time. Patient stated, "I already took the test on 07/24! I do not need it anymore!" Explained the need for the retest. Patient still strongly refuses.
--- NOTE | 2019-07-31 16:27 | NUR ---
MS RN NOTES Obtained COVID test via oropharyngeal. Brought specimen to Lab at this time.
[2019-07-31] MEDS: TOPIRAMATE 100 MG TABLET PO SCH (17:30)
--- NOTE | 2019-07-31 18:23 | NUR ---
MS RN CLOSING NOTES Received Patient awake and resting in bed. A/O x 4. VS stable with no acute distress. Breathing even and unlabored on room air with no respiratory distress. Patient stated moderate generalized pain. Administered Morphine 2mg IVP at 1725. OSCAR Midline clean, intact, patent and flushing well. Safety precautions in place. Bed locked and set to lowest position with side rails x 3 up. All needs rendered at this time. Call light within reach. Will endorse plan of care to oncoming shift.
--- NOTE | 2019-07-31 19:35 | NUR ---
MS RN CLOSING NOTES PATIENT AWAKE IN BED. A/OX4. ON 2L NC. NO S/S OF ACUTE RESPIRATORY DISTRESS OR C/O PAIN AT THIS TIME. CONTACT/DROPLET PRECAUTIONS IN PLACE FOR R/O COVID. MIDLINE PRESENT ON RIGHT UPPER ARM, HEP LOCKED; PATIENT C/O OF BURNING UPON FLUSHING; SLIGHT REDNESS PRESENT AROUND DRESSING; CHARGE NURSE MADE AWARE. SAFETY MEASURES IN PLACE AND PATIENT'S NEEDS MET. BED LOCKED, ALARM ON, SIDE RAILS RAISED, HOB ELEVATED, CALL LIGHT WITHIN REACH. WILL CONTINUE TO MONITOR. Addendum: 08/01/19 at 0324 by KALEB MENA RN MS RN OPENING NOTES
[2019-07-31 20:00] VITALS: BP 135/78
[2019-07-31 22:00] VITALS: BP 132/64
--- NOTE | 2019-07-31 22:03 | NUR ---
MS RN NOTES PATIENT REFUSED IVPB VANCOMYCIN. PATIENT STATED "I DON'T NEED ALL THAT ANTIBIOTICS. I DIDN'T GET THEM AT THE LAST HOSPITAL". EXPLAINED TO PATIENT NEED FOR MEDICATION; HOWEVER, PATIENT STILL REFUSES. CAPACITOR INSPECTOR RAQEUL BUENROSTRO, MADE AWARE.
[2019-08-01] MEDS ORDERED: POTASSIUM CHLORIDE 20 MEQ POWDER PACKET PO SCH
--- NOTE | 2019-08-01 | NUR ---
MS RN NOTES NEW PERIPHERAL IV STARTED ON LEFT UPPER ARM, SIZE 22. PATIENT C/O BURNING UPON FLUSHING. PATIENT IS REFUSING ALL IVPB ANTIBIOTICS. INSPECTOR FLOOR SUB ASSEMBLY RAQUEL BUENROSTRO, MADE AWARE.
[2019-08-01] MEDS: PROPRANOLOL HCL 40 MG TABLET PO SCH ×3 (05:00→21:00)
--- NOTE | 2019-08-01 05:30 | NUR ---
MS RN NOTES PATIENT REFUSING TO BE CLEANED AND LINEN CHANGE AT THIS TIME.
[2019-08-01] MEDS: VANCOMYCIN 1.25 GM in IV D5W 250 ML IV SCH ×3 (06:00→22:00)
--- NOTE | 2019-08-01 06:57 | NUR ---
MS RN CLOSING NOTES PATIENT SLEEPING IN BED, EASY TO AWAKEN. A/OX4. CURRENTLY ON RA. NO S/S OF ACUTE RESPIRATORY DISTRESS OR C/O PAIN AT THIS TIME. CONTACT/DROPLET PRECAUTIONS REMAIN IN PLACE FOR R/O COVID. MIDLINE PRESENT ON RIGHT UPPER ARM, HEP LOCKED; PHOTOS TAKEN TO DOCUMENT REDNESS AROUND DRESSING; MIDLINE NURSE CONTACTED TO ASSESS. SAFETY MEASURES IN PLACE AND PATIENT'S NEEDS MET. BED LOCKED, ALARM ON, SIDE RAILS RAISED, HOB ELEVATED, CALL LIGHT WITHIN REACH. WILL ENDORSE PLAN OF CARE TO DAY SHIFT NURSE.
--- NOTE | 2019-08-01 07:20 | NUR ---
MS PATTERSON OPENING NOTES PATIENT AWAKE IN BED. A/OX4. ON 2L NC. NO S/S OF SOB OR C/O PAIN AT THIS TIME. IV PRESENT ON RIGHT FOREARM, SIZE 20, INTACT & PATENT, HEP LOCKED. SAFETY MEASURES IN PLACE AND PATIENT'S NEEDS MET. BED LOCKED, ALARM ON, SIDE RAILS X2, CALL LIGHT WITHIN REACH. WILL CONTINUE TO MONITOR. Addendum: 08/02/19 at 0817 by KALEB MENA RN WRONG TIME
[2019-08-01 08:00] VITALS: BP 127/89
[2019-08-01] MEDS: PANTOPRAZOLE 40 MG TABLET.DR PO SCH ×2 (08:00→08:15)
--- NOTE | 2019-08-01 08:00 | NUR ---
MS RN OPENING NOTE RECEIVED PATIENT IN BED, AWAKE, ALERT AND ORIENTED X4. NO CARDIAC OR RESPIRATORY DISTRESS NOTED. NO SOB NOTED. SATURATING AT 95% ON ROOM AIR. 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 IV ACCESS NOTED ON R UPPER ARM MIDLINE. PER SOFTWARE QUALITY TEST ENGINEER NURSE, PT WAS COMPLAINING OF BURNING SENSATION ON THE MIDLINE SITE. I DID NOTICE SOME REDNESS AROUND THE INSERTION SITE AND IT LOOKS TENDER. HOWEVER, WHEN I ASKED PT IF SHE WOULD ALLOW ME TO LOOK AT IT, OR TO CHECK AND SEE IF IT IS WORKING. BUT SHE REFUSED. PT DOES HAVE SOME HOSTILE BEHAVIOR AND YELLS AND SCREAMS EVEN THOUGH NURSE WAS JUST ASKING HER SOME QUESTIONS, SHE STATED, "DO I REALLY HAVE TO KEEP REPEATING MYSELF?! NO! YOU CANNOT LOOK AT IT, BECAUSE I'M ALREADY TELLING YOU WHAT THE PROBLEM IS!!!" EXPLAINED THE IMPORTANCE OF HAVING AN RN ASSESS THE SITE, BUT SHE STILL REFUSED. STILL AWAITING FOR THE PICC LINE/ MIDLINE NURSE TO COME TO THE UNIT AND CHECK/ASSESS THE SITE. WILL FOLLOW UP. SAFETY MEASURES IN PLACE BED LOCKED AND IN LOW POSITION. BED ALARM ON, SIDE RAILS UP, HOB ELEVATED, CALL LIGHT WITHIN REACH. WILL CONT TO MONITOR.
[2019-08-01] MEDS: FOLIC ACID 1 MG TABLET PO SCH ×2 (08:15→09:00)
[2019-08-01] MEDS: BENAZEPRIL HCL 20 MG TABLET PO SCH ×2 (08:16→09:00)
[2019-08-01] MEDS: ALLOPURINOL 100 MG TABLET PO SCH ×4 (08:17→17:00)
[2019-08-01] MEDS: AZTREONAM 2 G in IV NS 0.9% 100 ML IV SCH ×5 (08:18→17:17)
[2019-08-01] MEDS: FEXOFENADINE HCL (60 MG) 60 MG TABLET PO SCH ×2 (08:19→09:00)
[2019-08-01] MEDS: MUPIROCIN OINT 2% 22 GM TUBE SCH ×2 (08:19→21:00)
--- NOTE | 2019-08-01 09:30 | NUR ---
REFUSED ALL PO AND IV MEDS PT REFUSED ALL AM MED SUCH PROTONIX PO, BACTROBAN OINTMENT, TAYLOR PO, FOLIC ACID PO, LOTENSIN PO, ZYLOPRIM PO AND IV AZACTAM ATB. PT STATED, "IM NOT GONNA LET YOU TOUCH MY IV. BECAUSE I ALREADY TOLD YOU THAT ITS NOT IN THE RIGHT PLACE. .SO YOU ARE NOT GOING TO GIVE ME THOSE IV ANTIBIOTICS!" I ASKED HER IF I COULD CHECK IT FOR MY SELF AND SEE IF HER R UPPER ARM MIDLINE IS PATENT, SHE STILL REFUSED. SHE SAID, "YOU ARE NOT TOUCHING OR FLUSHING IT. I JUST WANT IT REPLACED!" PT ALSO REFUSED PO MEDS, SHE SAID THAT SHE HAS PROBLEMS SWALLOWING, HOWEVER, SHE WAS ABLE TO EAT HER BREAKFAST AND DRINK WITHOUT ANY PROBLEM WHATSOEVER. NO S/S OF ASPIRATION NOTED. I OFFERED PT THAT I CAN CRUSH HER MEDS AND PUT IT IN APPLE SAUCE OR JUICE, BUT SHE REPLIED, "GOD DAMN! DONT YOU FUCKING LISTEN?! I SAID I DONT WANT IT!" Addendum: 08/01/19 at 1518 by HANNAH SUTHERLAND RN REFUSED ALL PO AND IV MEDS PT REFUSED ALL AM MED SUCH PROTONIX PO, BACTROBAN OINTMENT, TAYLOR PO, FOLIC ACID PO, LOTENSIN PO, ZYLOPRIM PO AND IV AZACTAM ATB. PT STATED, "IM NOT GONNA LET YOU TOUCH MY IV. BECAUSE I ALREADY TOLD YOU THAT ITS NOT IN THE RIGHT PLACE. .SO YOU ARE NOT GOING TO GIVE ME THOSE IV ANTIBIOTICS!" I ASKED HER IF I COULD CHECK IT FOR MY SELF AND SEE IF HER R UPPER ARM MIDLINE IS PATENT, SHE STILL REFUSED. SHE SAID, "YOU ARE NOT TOUCHING OR FLUSHING IT. I JUST WANT IT REPLACED!" PT ALSO REFUSED PO MEDS, SHE SAID THAT SHE HAS PROBLEMS SWALLOWING, HOWEVER, SHE WAS ABLE TO EAT HER BREAKFAST AND DRINK WITHOUT ANY PROBLEM WHATSOEVER. NO S/S OF ASPIRATION NOTED. I OFFERED PT THAT I CAN CRUSH HER MEDS AND PUT IT IN APPLE SAUCE OR JUICE, BUT SHE REPLIED, "GOD DAMN! DONT YOU FUCKING LISTEN?! I SAID I DONT WANT IT!" THERE IS ALSO AN IV ACCESS SITE ON THE L AC, BUT SHE ALSO REFUSES FOR ME TO CHECK FOR PATENCY AND/OR ADMINISTER IV ON THAT IV SITE.
[2019-08-01 11:14] LABS: BASOPHILS % (AUTO) 0.1 % (0.0-2.0); EOSINOPHILS % (AUTO) 1.3 % (0.0-6.0); HEMATOCRIT 33 % (33-45); HEMOGLOBIN 10.6 g/dL (11.5-14.8); LYMPHOCYTES # (AUTO) 0.2 /CMM (0.8-4.8); LYMPHOCYTES % (AUTO) 7.5 % (20.0-44.0); MEAN CORPUSCULAR HGB CONC 32 g/dl (31.0-36.0); MEAN CORPUSCULAR VOLUME 87 fL (82-100); MONOCYTES # (AUTO) 0.3 /CMM (0.1-1.30); MONOCYTES % (AUTO) 9.3 % (2.0-12.0); NEUTROPHILS # (AUTO) 2.7 /CMM (1.8-8.9); NEUTROPHILS % (AUTO) 81.8 % (43.0-81.0); WHITE BLOOD COUNT (AUTO) 3.3 K/uL (4.3-11.0)
[2019-08-01 11:40] LABS: CALCIUM, SERUM 8.4 mg/dL (8.5-10.1); CREATININE 0.6 mg/dL (0.6-1.3); MAGNESIUM 1.8 mg/dL (1.8-2.4); PHOSPHORUS 2.8 mg/dL (2.5-4.9); POTASSIUM 3.6 mmol/L (3.5-5.1)
[2019-08-01 11:44] LABS: PLATELET COUNT (AUTO) 27 /CMM (150-450)
[2019-08-01 11:48] LABS: D-DIMER 2.95 mg/L(FEU (0.17-0.50)
--- NOTE | 2019-08-01 13:30 | NUR ---
REFUSED MEDS REFUSED ALL PO AND IV MEDS PT ALSO REFUSED PO MEDS AGAIN. REFUSED PO INDERAL AND ZYLOPRIN. BP NOTED AT 126/82 AND HR AT 88S. SHE STILL SAYS THAT SHE HAS PROBLEMS SWALLOWING, HOWEVER, SHE WAS ABLE TO EAT HER BREAKFAST AND DRINK WITHOUT ANY PROBLEM WHATSOEVER. NO S/S OF ASPIRATION NOTED. ONCE AGAIN, I OFFERED TO CRUSH HER MEDS AND PUT IT IN APPLE SAUCE OR JUICE, BUT SHE STILL REFUSED AND LIZ, "WILL YOU JUST PLEASE FUCKING STOP ASKING ME ABOUT IT. I ALREADY TOLD YOU KNOW." EXPLAINED RISKS CONSEQUENCES AND NEGATIVE OUTCOMES OF NON COMPLIANT BEHAVIORS. STILL REFUSED.
--- NOTE | 2019-08-01 14:00 | NUR ---
REFUSED VANCOMYCIN PT REFUSED VANCOMYCIN. SHE STATES, THAT SHE DOESNT NEED OR WANT ANY OF THESE ANTIBIOTIC. EXPLAINED RISKS AND BENEFITS OF MEDICATION AND EXPLAINED THE RISKS, CONSEQUENCES AND NEGATIVE OUTCOMES OF HER NON COMPLIANCE TO MEDICATIONS PRESCRIBES. BUT SHE SENT ME OUT OF HER ROOM AND SHE STILL REFUSED.
--- NOTE | 2019-08-01 15:00 | NUR ---
D/C MIDLINE/IV RE-INSERTED MIDLINE WAS DISCONTINUED. PT DID NOT WANT ANY OF THE NURSING STAFF TO CHECK HER MIDLINE FOR PATENCY OR TO CHECK THE SITE. SHE SAID, "I JUST WANT IT GONE. THERES SOMETHING WRONG WITH IT. I KNOW MY BODY. AND I KNOW IT JUST NEEDS TO BE TAKEN OUT." R UPPER ARM MIDLINE WAS EREMOVED. APPLIED PRESSURE DRESSING. NO S/S OF BLEEDING OR INFECTION TO SITE NOTED. PICCLINE NURSE WAS HERE AND WAS UNABLE TO RE-INSERT A NEW MIDLINE. HOWEVER, SHE WAS ABLE TO RE-INSERT A NEW PERIPHERAL LINE ON THE R FOREARM G20. INTACT, PATENT AND FLUSHING WELL. NO S/S OF INFECTION/INFILTRATION NOTED. TOLERATED PROCEDURE WELL.
[2019-08-01 16:00] VITALS: BP 134/70
[2019-08-01] MEDS: FENTANYL TD PATCH (12 MCG/HR) 12 MCG/HR PATCH.TD72 TD SCH (18:00)
[2019-08-01] MEDS: TOPIRAMATE 100 MG TABLET PO SCH (18:00)
--- NOTE | 2019-08-01 18:00 | NUR ---
REFUSED ALL PO AND IV MEDS PT REFUSED ALL AM MEDS AGAIN. SHE STATES THAT SHE DOESNT WANT ANY OF IT AND SHE DOESNT NEED ANY OF IT. THEN AT FIRST, SHE AGREED TO LET ME GIVE HER IV AZACTAM DUE AT 1700, SO I HUNG THE BAG AND STARTED TO ADMINISTER XOCHILT ANTIBIOTIC. THEN 30 MINUTES LATER, SHE CALLED ME INTO HER ROOM SCREAMING AND YELLING, TELLINIG ME TO TAKE IT OUT FABRICATING STORIES TELLING ME, "I NEVER TOLD YOU THAT I WANTED THE ANTIBIOTIC. WHY DID YOU GIVE IT TO ME?!" EXPLAINED TO PT THAT SHE HAD INITIALLY AGREED TO IT AND I ASKED IF SHE HAD FORGOTTEN OUT CONVERSATION/INTERACTION WITH EACH OTHER, THEN SHE REPLIED, "WELL, TAKE IT OFF BECAUSE I DONT WANT IT." EXPLAINED RISKS AND BENEFITS OF MEDS AND RISKS, CONSEQUENCES AND NEGATIVE OUTCOMES OF NON COMPLIANT BEHAVIORS. THE SHE RESPONDS WITH, "I DONT WANNA TALK ANYMORE!".
[2019-08-01] MEDS ORDERED: ACETAMINOPHEN 325 MG TABLET PO ONE (18:30)
[2019-08-01] MEDS ORDERED: diphenhydrAMINE HCL 50 MG/ML VIAL IV ONE (18:30)
--- NOTE | 2019-08-01 18:30 | NUR ---
REFUSING CRYOPRECIPITATE DR. RAYMOND ORDERED FOR CRYOPRECIPITATE TRANSFUSION. I TRIED TO OBTAIN CONSENT FROM THE PT, BUT SHE IS REFUSING TO GIVE CONSENT. EXPLAINED RISKS AND BENEFITS OF THE TRANSFUSION, HOWEVER SHE IS STILL STRONGLY REFUSING.
--- NOTE | 2019-08-01 19:20 | NUR ---
MS RN OPENING NOTES PATIENT AWAKE IN BED. A/OX4. ON 2L NC. NO S/S OF SOB OR C/O PAIN AT THIS TIME. IV PRESENT ON RIGHT FOREARM, SIZE 20, INTACT & PATENT, HEP LOCKED. SAFETY MEASURES IN PLACE AND PATIENT'S NEEDS MET. BED LOCKED, ALARM ON, SIDE RAILS X2, CALL LIGHT WITHIN REACH. WILL CONTINUE TO MONITOR.
--- NOTE | 2019-08-01 19:27 | NUR ---
MS RN CLOSING NOTES PATIENT IN BED, AWAKE, ALERT AND ORIENTED X4. NO CARDIAC OR RESPIRATORY DISTRESS NOTED. NO SOB NOTED. SATURATING AT 95% ON ROOM AIR. 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 IV ACCESS NOTED ON R FOREARM G22. INTACT AND PATENT AND FLUSHING WELL. NO S/S OF INFECTION OR INFILTRATION NOTED. PT REFUSED ALL HER MEDS AND TREATMENTS TODAY. SHE HAS DIFFERENT EXCUSES TO WHY SHE DOESNT WANNA TAKE HER MEDS PRESCRIBED. PROVIDED EDUCATION TO PT REGARDING RISKS, CONSEQUENCES AND NEGATIVE OUTCOMES OF NON COMPLIANT BEHAVIORS. BUT PT IS VERY STUBBORN AND ALWAYS INTERRUPTS NURSE WHEN TEACHING IS BEING PROVIDED. ALSO REFUSING CRYOPRECIPITATE INFUSION. EVEN WHEN I ASKED HER WITH THE POLISHER DIAL RN, SHE STILL REFUSES, STATING, "I TOLD YOU ALREADY! I DONT WANT IT!". SAFETY PRECAUTIONS IN PLACE BED LOCKED AND IN LOW POSITION. BED ALARM ON, SIDE RAILS UP, HOB ELEVATED, CALL LIGHT WITHIN REACH. WILL CONT TO MONITOR.
--- NOTE | 2019-08-01 20:00 | NUR ---
MS RN NOTES - PATIENT REFUSING TRANSFUSION EXPLAINED TO PATIENT THAT DR. RAYMOND ORDERED A CRYOPRECIPITATE TRANSFUSION, HOWEVER PATIENT IS CURRENTLY REFUSING. PATIENT STATES "I'M NOT GETTING THAT TRANSFUSION. IT'S THE HOSPITAL'S FAULT I NEED THE TRANSFUSION BECAUSE YOU KEEP TAKING MY BLOOD". EXPLAINED TO PATIENT THAT FIBRINOGEN LEVELS ARE LOW WHICH IS WHY SHE NEEDS THE TRANSFUSION, HOWEVER PATIENT IS STILL REFUSING AT THIS TIME.
--- NOTE | 2019-08-01 20:00 | NUR ---
MS RN NOTES PATIENT REFUSING VITAL SIGNS AT THIS TIME.
--- NOTE | 2019-08-01 20:30 | NUR ---
MS RN NOTES PATIENT REFUSING CRYOPRECIPITATE TRANSFUSION. PATIENT STATES "I DON'T WANT IT. STOP ASKING ME".
[2019-08-01 22:37] VITALS: BP 130/77
[2019-08-01] MEDS: BACLOFEN (10 MG) 10 MG TABLET PO PRN (22:40)
[2019-08-01] MEDS: MORPHINE SULFATE INJ 2 MG/ML DISP.SYRIN IV PRN (22:41)
[2019-08-02] MEDS: MORPHINE SULFATE INJ 2 MG/ML DISP.SYRIN IV PRN ×2 (03:19→21:03)
[2019-08-02 03:25] VITALS: BP 139/73
[2019-08-02] MEDS: PROPRANOLOL HCL 40 MG TABLET PO SCH ×3 (05:00→21:00)
[2019-08-02] MEDS: VANCOMYCIN 1.25 GM in IV D5W 250 ML IV SCH ×3 (06:00→22:00)
[2019-08-02] MEDS: PANTOPRAZOLE 40 MG TABLET.DR PO SCH (07:30)
--- NOTE | 2019-08-02 07:35 | NUR ---
MS RN OPENING NOTES RECEIVED PATIENT IN BED, AWAKE, A/O X4. PATIENT IS ON OXYGEN THERAPY AT 2 LPM VIA NASAL CANNULA. NO COMPLAINS OF PAIN. RFA IV ACCESS PRESENT AND INTACT. SAFETY PRECAUTIONS IN PLACE; BED IN LOW POSITION AND LOCKED, RAILS UP X2, CALL LIGHT WITHIN REACH. WILL CONTINUE TO MONITOR PATIENT.
--- NOTE | 2019-08-02 07:40 | NUR ---
MS RN CLOSING NOTES PATIENT AWAKE IN BED. A/OX4. ON 2L NC. NO DISTRESS NOTED. IV ON RIGHT FOREARM REMAINS INTACT & PATENT. SAFETY MEASURES IN PLACE AND PATIENT'S NEEDS MET. ENDORSED TO DAY SHIFT NURSE PLAN OF CARE AND REFUSAL OF CRYOPRECIPITATE TRANSFUSION.
[2019-08-02] MEDS: AZTREONAM 2 G in IV NS 0.9% 100 ML IV SCH ×4 (08:00→16:00)
[2019-08-02] MEDS: MUPIROCIN OINT 2% 22 GM TUBE SCH ×2 (09:00→21:00)
[2019-08-02] MEDS: BENAZEPRIL HCL 20 MG TABLET PO SCH (09:00)
[2019-08-02] MEDS: FEXOFENADINE HCL (60 MG) 60 MG TABLET PO SCH (09:00)
[2019-08-02] MEDS: FOLIC ACID 1 MG TABLET PO SCH (09:00)
[2019-08-02] MEDS: ALLOPURINOL 100 MG TABLET PO SCH ×3 (09:00→17:00)
--- NOTE | 2019-08-02 10:06 | NUR ---
MS RN NOTES PATIENT TOTALLY NON-COMPLIANT. REFUSES LABS, VITALS, MEDS. ATTENDING PHYSICIAN AWARE.
--- NOTE | 2019-08-02 15:51 | NUR ---
MS RN NOTES PATIENT REFUSED AFTERNOON LABS. LAB WILL BE BACK AND TRY IN THE EVENING.
[2019-08-02 16:00] VITALS: BP 111/61
--- NOTE | 2019-08-02 16:25 | NUR ---
MS RN NOTES FURTHER PATIENT CARE HANDED OUT TO YESENIA ROMANO.
--- NOTE | 2019-08-02 16:34 | NUR ---
MS RN NOTES RESUMED PATIENT CARE. APTIENT ASLEEP AT THIS TIME, AROUSABLE TO VERBAL AND TACTILE STIMULI. CALL LIGHT WITHIN REACH.
[2019-08-02] MEDS: TOPIRAMATE 100 MG TABLET PO SCH (18:00)
--- NOTE | 2019-08-02 18:50 | NUR ---
MS RN NOTES ALERT AND ORIENTED X4. PATIENT ON THE PHONE PEAKING WITH DR. RAYMOND, YELLING AND VERY UPSET. PATIENT NON-COMPLIANT WITH MEDS AND REFUSED EVENING MEDICATIONS DESPITE OF EDUCATION PROVIDED. NO SOB. HOB ELEVATED. DENIES ANY C/O PAIN NOR DISCOMFORT AT THIS TIME. BED IN LOWEST POSITION , LOCKED. BED ALARM ON. CALL LIGHT WITHIN REACH. ABLE TO VERBALIZE NEEDS. IN NO APPARENT DISTRESS.
--- NOTE | 2019-08-02 19:30 | NUR ---
MS RN NOTES RECEIVED ON BED A/O X4,HOB ELEVATED.ON BARIATRIC BED WITH SPECIALTY MATTRESS.SALINE LOCK RFA INTACT AND PATENT.CALL LIGHT IN REACH,NEEDS ANTICIPATED.
--- NOTE | 2019-08-02 20:00 | NUR ---
MS RN NOTES REFUSED VITAL SIGNS AT THIS TIME.
[2019-08-02 20:59] VITALS: BP 143/74
--- NOTE | 2019-08-02 21:00 | NUR ---
MS RN NOTES OFFERED BACTROBAN FOR MRSA NARES AND INDERAL FOR BLOOD PRESSURE BUT REFUSED.EXPLAINED RISK AND BENEFITS BUT STILL REFUSED.
--- NOTE | 2019-08-02 21:03 | NUR ---
MS RN NOTES PAIN MANAGEMENT C/O PAIN ON HER BACK AND AND BACK OF HEAD,MEDICATED WITH MORPHINE 2MG IV ORDERED.
[2019-08-02] MEDS: BACLOFEN (10 MG) 10 MG TABLET PO PRN (21:11)
--- NOTE | 2019-08-02 21:11 | NUR ---
MS RN NOTES C/O MUSCLE SPASMS,MEDICATED WITH BACLOFEN 15MG PO WITH PUDDING PER PATIENT REQUEST.
--- NOTE | 2019-08-02 22:00 | NUR ---
MS RN NOTES REFUSED VANCOMYCIN IV,PATIENT SAYS " I DONT WANT TO BE HOOKED UP WITH THE IV FLUIDS AND ANTIBIOTICS"
--- NOTE | 2019-08-03 | NUR ---
MS RN NOTES REPOSITIONED,OFFERED DUE AZACTAM IV ABX BUT REFUSED.EXPLAINED RISK AND BENEFITS BUT REFUSED.
[2019-08-03] MEDS: MORPHINE SULFATE INJ 2 MG/ML DISP.SYRIN IV PRN ×3 (01:44→11:09)
--- NOTE | 2019-08-03 01:44 | NUR ---
MS RN NOTES PAIN MANAGEMENT C/O BACK PAIN 8/10 ON PAIN SCALE,MEDICATED WITH MORPHINE 2MG IV ORDERED.
[2019-08-03] MEDS: PROPRANOLOL HCL 40 MG TABLET PO SCH ×2 (05:00→12:11)
--- NOTE | 2019-08-03 05:00 | NUR ---
MS RN NOTES REFUSED VITAL SIGNS AND REFUSED TO TAKE INDERAL PO DUE AT THIS TIME.
[2019-08-03] MEDS: VANCOMYCIN 1.25 GM in IV D5W 250 ML IV SCH ×2 (06:00→14:00)
[2019-08-03] MEDS: BACLOFEN (10 MG) 10 MG TABLET PO PRN ×2 (06:13→12:13)
--- NOTE | 2019-08-03 06:13 | NUR ---
MS RN NOTES C/O MUSCLE SPASMS,BACLOFEN 15MG PO GIVEN ORDERED.
--- NOTE | 2019-08-03 06:13 | NUR ---
MS RN NOTES PAIN MANAGEMENT C/O BACK PAIN 8/10 0N PAIN SCALE,MORPHINE 2MG IV GIVEN ORDERED.
--- NOTE | 2019-08-03 06:27 | NUR ---
MS RN NOTES ON BED A/O X4,REFUSED ALL DUE PO AND IV ABX EXCEPT MORPHINE AND BACLOFEN.POSSIBLE TRANSFER TO [facility] ONCE COVID 19 TEST RESULTED.IN NO ACUTE DISTRESS.WILL ENDORSE TO DAY NURSE FOR JEFFREY.
[2019-08-03] MEDS: PANTOPRAZOLE 40 MG TABLET.DR PO SCH (07:30)
--- NOTE | 2019-08-03 07:39 | NUR ---
RN NOTE Patient refused AM labs.
--- NOTE | 2019-08-03 07:57 | NUR ---
RN OPENING NOTE Patient is resting in bed, A/O x4, showing no signs of acute distress or SOB, saturating >95% on 2L NC. Patient refused to have IV line flushed. Patient refused AM medications when asked. Patient stated, "I want to sleep, please leave me alone." Bed is in lowest position, side rails x3 in upright position, call light is within reach, fall, safety and aspirataion precautions enforced. Will continue with plan of care.
[2019-08-03] MEDS: AZTREONAM 2 G in IV NS 0.9% 100 ML IV SCH ×4 (08:00→16:00)
[2019-08-03] MEDS: BENAZEPRIL HCL 20 MG TABLET PO SCH (09:00)
[2019-08-03] MEDS: ALLOPURINOL 100 MG TABLET PO SCH ×3 (09:00→17:00)
[2019-08-03] MEDS: FEXOFENADINE HCL (60 MG) 60 MG TABLET PO SCH (09:00)
[2019-08-03] MEDS: MUPIROCIN OINT 2% 22 GM TUBE SCH (09:00)
[2019-08-03] MEDS: FOLIC ACID 1 MG TABLET PO SCH (09:00)
--- NOTE | 2019-08-03 11:02 | NUR ---
RN NOTE COVID results faxed to [facility]. Spoke with Jennifer.
[2019-08-03] MEDS ORDERED: AZTR2VIA2 IM (11:24)
[2019-08-03] MEDS ORDERED: ALLO100T25 PO (11:24)
[2019-08-03] MEDS ORDERED: Morphine Sulfate Inj IV (11:24)
[2019-08-03] MEDS ORDERED: MAGN400O6 PO (11:24)
[2019-08-03] MEDS ORDERED: ZOLP5TAB2 PO (11:24)
[2019-08-03] MEDS ORDERED: PANT40TA2 PO (11:24)
[2019-08-03] MEDS ORDERED: VANC1.2526 IV (11:24)
[2019-08-03] MEDS ORDERED: ONDA4VIA23 IVP (11:24)
[2019-08-03 12:11] VITALS: BP 135/67
[2019-08-03] MEDS: TOPIRAMATE 100 MG TABLET PO SCH (17:54)
--- NOTE | 2019-08-03 18:30 | NUR ---
WEATHER OBSERVER NOTE Patient is medically stable for discharge, report given to Reyna PATTERSON at [facility]. Patient is A/O x4, showing no signs of acute distress or SOB, saturating >95% on RA, 3L NC PRN comfort. Patient refused skin assessment. DC instructions provided and patient verbalized understanding. All belongings with patient. Medications picked up from pharmacy. Patient will be leaving with IV line due to IV meds prescribed by MD after DC All patient needs met, all due medications given, patient kept clean and dry throughout shift. Patient picked up by EMS en route to [facility].
--- NOTE | 2019-08-03 19:54 | NUR ---
RN NOTE Medications left at bedside. Called [facility] and they stated they will come back to [facility] medications. new car driver made aware.
--- NOTE | 2019-08-03 20:15 | NUR ---
RN NOTE Spoke with Norm and they stated that YESENIA Oleary from [facility] stated that patient's medications will not be accepted from us. Will keep meds at pharmacy.
[2019-08-05 19:48] LABS: HIV SCRN 4G wRFX Non Reactive
[2019-08-05 19:49] LABS: *ANA ANTI-DNA(DS) AB, QN <1; *ANA RNP ANTIBODIES <0.2; *ANA SJOGREN'S ANTI-SS-A <0.2; *ANA SJOGREN'S ANTI-SS-B <0.2; *ANAANTI-SCLERODERMA-70 AB <0.2; *ANASMITH AB <0.2
[2019-08-05 19:50] LABS: *ANA ANTI-CENTROMERE B AB <0.2; *ANA ANTI-JO-1 <0.2; *ANA ANTICHROMATIN ANTIBODY <0.2
== END 2019-08-03 18:45 | disposition short-term general hospital (02) | DRG 690 ==
LOC: MED 07-26 02:10
PROVIDERS: ADMIT Nurse Practitioner Acute Care; ATTEND Registered Nurse
PROC: 30233R1 Transfusion of Nonautologous Platelets into Peripheral Vein, Percutaneous Approach (ICD-10-PCS; principal; 2019-07-27)
PROC: 30233M1 Transfusion of Nonautologous Plasma Cryoprecipitate into Peripheral Vein, Percutaneous Approach (ICD-10-PCS; 2019-07-28)
PROC: 30233K1 Transfusion of Nonautologous Frozen Plasma into Peripheral Vein, Percutaneous Approach (ICD-10-PCS; 2019-07-28)
PROC: 05HB33Z Insertion of Infusion Device into Right Basilic Vein, Percutaneous Approach (ICD-10-PCS; 2019-08-01)
DX: C92.40 Acute promyelocytic leukemia, not having achieved remission (principal); D65 Disseminated intravascular coagulation [defibrination syndrome]; E43 Unspecified severe protein-calorie malnutrition; D61.818 Other pancytopenia; B49 Unspecified mycosis; K76.6 Portal hypertension; K76.0 Fatty (change of) liver, not elsewhere classified; E66.01 Morbid (severe) obesity due to excess calories; I10 Essential (primary) hypertension; E87.6 Hypokalemia; R73.03 Prediabetes; F39 Unspecified mood [affective] disorder; G89.4 Chronic pain syndrome; M81.0 Age-related osteoporosis without current pathological fracture; G25.0 Essential tremor; Z68.45 Body mass index [BMI] 70 or greater, adult; K59.00 Constipation, unspecified; Z88.2 Allergy status to sulfonamides; Z88.0 Allergy status to penicillin; R16.1 Splenomegaly, not elsewhere classified; N39.0 Urinary tract infection, site not specified; B96.89 Other specified bacterial agents as the cause of diseases classified elsewhere
CPT/HCPCS: 36410; 36415; 71045-TC; 76700-TC; 80048-TC; 80053-TC; 80061-TC; 80076-TC; 80202-TC; 82272-TC; 82728-TC; 83540-TC; 83615-TC; 83735-TC; 84100-TC; 84439-TC; 84443-TC; 84550-TC; 85025-TC; 85045-TC; 85396; 86140-TC; 86225; 86235; 86431-TC; 86706; 86803; 86850-TC; 86880-TC; 87040-TC; 87081-TC; 87340; G0378; J1200; J1447; J2270; J3370; J3475; J3490; J7030; J7050; J7060; P9012; P9016-BL; P9017-BL; P9034-BL; U0003-CS